=== PATIENT | male | born 1980 | race Two or more races ===

== ENCOUNTER 2025-02-15 09:47 | Outpatient (RCR) | payer BC, SELFPAY ==
--- NOTE | 2025-02-15 10:13 | PT.OIERPT ---
PT OP Initial Eval Patient Information Outpatient Physical Therapy Treatment Date: 02/15/25 Visit Reasons: left knee pain Medical Diagnosis: M25.562 Treatment Dx #1: L knee pain Start of Care: 02/15/25 Date of Onset: 2 yrs ago Smoking Status Smoking Status: Never smoker Initial Assessment Subjective: Pt is 44 yr old male who reports L knee pain x2 yrs. He slipped about a week ago with more L knee pain. He works in the oil [employer] and the knee hurts with getting up from the ground, into and out of the car, squatting, prolonged walking. There is background pain that is constant. PMH: HTN, DM Imaging: Xray report in chart moderate osteophytic spurring ant/inf aspect of the patella at the patellar ligament attachment site Pt goal: to get rid of the pain Objective: L knee ArOM: Extension: -5 deg Flexion: 100 deg SLR: 55 deg Strength: 4-/5 quads, HS Narda's: positive TTP: moderate of patella tendon Valgus stress: positive for gapping and pain of medial knee Assessment: Pt presents with pain and TTP over patella tendon and pain with knee rotation and valgus stress consistent with meniscus irritation and patella tendinopathy. Pt may benefit from skilled therapy but has poor/fair rehab potential if meniscus is torn. Pt may benefit from further diagnostic imaging of L knee such as MRI if ssx don't resolve with conservative Rx. Short Term and Laborer Hoisting Goals 1. Ind with HEP 2. Improved AROM into extension to full and flexion to 110 deg 3. Pt will get up from the ground and into the car without pain 4. Pt will ambulate x community distances and work duties with <=3/10 L knee pain Treatment Plan ?1. Manual therapy ? 2. Therex ? 3. Modalities as indicated, moist heat, ice, estim Frequency and Duration: 1-2x a week for 4 trial rx sessions. If progressing continue up to 12. If not, reassess Certification Dates: 02/15/25 to 05/15/25 Procedure Charges OP PT Eval Mod Complex 30 minutes: Yes
== END 2025-02-16 23:59 | disposition home or self-care (01) ==
LOC: CPTX 09:47
PROVIDERS: PCP Physician Assistant; Referring Provider Physician Assistant; Visit Provider Physician Assistant
DX: M25.562 Pain in left knee (principal); E11.9 Type 2 diabetes mellitus without complications; I10 Essential (primary) hypertension
CPT/HCPCS: 97162

== ENCOUNTER 2025-02-28 07:20 | Day surgery (SDC) | payer BC, SELFPAY ==
--- NOTE | 2025-02-25 11:45 | EKG_ITS ---
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 : 1980 Requested By: Keena Vanegas Order Number: [id number] Reading MD: Keena Vanegas Measurements Intervals [place] Rate: 81 P: 13 FL: 189 QRS: 6 QRSD: 102 T: 21 QT: 370 QTc: 430 Interpretive Statements SINUS RHYTHM No previous ECG available for comparison /store/S0/[id number].pdf
[2025-02-25 12:41] VITALS: BMI 40.6
[2025-02-25 13:38] LABS: Partial Thromboplastin Time 26.6 Seconds (22.0-36.0); Prothrombin Time 10.9 Seconds (9.0-12.2)
[2025-02-25 13:41] LABS: Alanine Aminotransferase 30 U/L (10-49); Albumin, Serum 4.4 gm/dL (3.5-5.0); Albumin/Globulin Ratio 1.8 (1.2-2.2); Alkaline Phosphatase 100 U/L (46-116); Anion Gap 9 (7-16); Aspartate Amino Transferase 21 U/L (0-34); BUN/Creatinine Ratio 14 Ratio (12-20); Bilirubin,Total 0.4 mg/dL (0.3-1.2); Blood Urea Nitrogen 14 mg/dL (9-23); Calcium 8.7 mg/dL (8.3-10.6); Calcium (Corrected) 8.7 mg/dL (8.5-10.1); Carbon Dioxide 26.6 mMol/L (20.0-31.0); Chloride 105 mMol/L (98-107); Estimated Creatinine Clearance 120.5 mL/min (>60); Globulin 2.5 gm/dL (2.3-3.5); Glucose 182 mg/dL (74-106); Osmolality,Calculated 286 (275-295); Potassium 4.1 mMol/L (3.4-5.1); Sodium 141 mMol/L (136-145); Total Protein 6.9 gm/dL (5.7-8.2); eGFR > 60 See Note
[2025-02-28 08:03] VITALS: BP 147/101; PULSE 73; RESP 18; TEMP 36.8; O2SAT 95; BMI 41.0
[2025-02-28] MEDS: RINGERS LACTATED 1000 ML 1,000 ML 20 ML IV (09:12)
[2025-02-28 09:46] VITALS: BP 137/100; PULSE 77; RESP 20; TEMP 36.5; O2SAT 95
[2025-02-28 09:56] VITALS: BP 137/102; PULSE 79; RESP 15; O2SAT 98
[2025-02-28 10:06] VITALS: BP 143/97; PULSE 77; RESP 20; O2SAT 98
[2025-02-28 10:16] VITALS: BP 148/99; PULSE 71; RESP 18; TEMP 36.5; O2SAT 99
--- NOTE | 2025-02-28 10:46 | SUR.PHASEII ---
1020 Pt more awake and alert. Denies pain or N/V. Abd remains large and soft. No mouth or rectal bleeding seen. Pt given urinal-per request. Nidhi PO fluids.
--- NOTE | 2025-02-28 10:56 | SUR.PHASEII ---
1040 Pt assessment unchanged. No complaints. Amb with steady gait. Able to dress self. Pt and family given dc instructions. Aware of 2 new prescriptions, to be picked up at [facility]. Both state understanding. Pt meets dc criteria-to home.
== END 2025-02-28 10:40 | disposition home or self-care (01) ==
PROVIDERS: PCP Physician Assistant; Referring Provider Specialist; Visit Provider Specialist
PROC: 0DBE8ZX Excision of Large Intestine, Via Natural or Artificial Opening Endoscopic, Diagnostic (ICD-10-PCS; CPT 45380; principal; 2025-02-28 09:15)
PROC: (CPT 43239; 2025-02-28 09:15)
DX: K64.2 Third degree hemorrhoids (principal); K29.51 Unspecified chronic gastritis with bleeding; B96.81 Helicobacter pylori [H. pylori] as the cause of diseases classified elsewhere; K20.91 Esophagitis, unspecified with bleeding; I85.00 Esophageal varices without bleeding; I10 Essential (primary) hypertension; E11.9 Type 2 diabetes mellitus without complications; E66.01 Morbid (severe) obesity due to excess calories; Z68.41 Body mass index [BMI] 40.0-44.9, adult; Z79.84 Long term (current) use of oral hypoglycemic drugs; Z79.899 Other long term (current) drug therapy
CPT/HCPCS: 45398; 43239; 36415; 80053; 85610; 85730; 93005; A4649; J7120

== ENCOUNTER 2025-03-15 08:30 | Outpatient (RCR) | payer BC, SELFPAY ==
--- NOTE | 2025-02-25 15:43 | PT.ODAYNRPT ---
PT Outpatient Daily Note OP Daily Note Outpatient Physical Therapy Treatment Date: 02/25/25 Visit Reasons: LEFT KNEE PAIN Subjective: Pt c/o moderate pain. Objective: Please see flow sheet for ther ex list. Assessment: Pt demonstrates poor activity tolerance due to increase pain and c/o clicking/popping. Plan: Continue with POC. Length of Time (minutes) of Treatment: 30 Minutes Procedure Charges Therapeutic Exercise 30 minutes: Yes
--- NOTE | 2025-03-07 14:44 | PT.ODAYNRPT ---
PT Outpatient Daily Note OP Daily Note Outpatient Physical Therapy Treatment Date: 03/07/25 Visit Reasons: LEFT KNEE PAIN Subjective: Increased L knee pain with stepping and twisting Objective: See F/S for therex Ice x7' post Rx Assessment: Good therex tolerance with lunging and partial body weight squatting Plan: Continue per POC Length of Time (minutes) of Treatment: 30 Minutes Procedure Charges Therapeutic Exercise 30 minutes: Yes
--- NOTE | 2025-03-15 10:05 | PT.ODS1RPT ---
PT OP Progress/Discharge Note Date of Service: 03/15/25 Progress Note/DC Note Progress Note/Discharge Note: DC Note Patient Information Visit Reasons: LEFT KNEE PAIN Service Continue Service or Discharge: Discharge Discharge Date: 03/15/25 Status Subjective: Increased L knee pain with stepping and twisting. He has good days and bad days with high knee pain, unchanged since starting therapy. Objective: See F/S for therex L knee strength: Quads: 4-/5 HS: 4-/5 Valgus stress: positive for gapping and pain of medial knee AROM: Flexion: 100 deg Extension: -5 deg Assessment: Pt has attended the eval and 3 Rx sessions with limited progress with therapy goals due to continued L knee pain consistent with meniscus pain and patella osteophytes. PT recommends further diagnostic imaging such as MRI of L knee. Plan: D/C with HEP Procedure Charges Therapeutic Exercise 30 minutes: Yes
== END 2025-03-19 23:59 | disposition home or self-care (01) ==
LOC: CPTX 08:30
PROVIDERS: PCP Physician Assistant; Referring Provider Physician Assistant; Visit Provider Physician Assistant
DX: M25.562 Pain in left knee (principal); I10 Essential (primary) hypertension; E11.9 Type 2 diabetes mellitus without complications
CPT/HCPCS: 97110

== ENCOUNTER 2025-09-20 10:30 | Outpatient (AMB) | payer BC, SELFPAY ==
--- NOTE | 2025-09-20 10:58 | ORTHONT_ITS ---
Vital signs 09/20/25 10:59 Height 1.75 m Height Method Stated Weight 127.176 kg Weight Measurement Method Standing Scale BMI 41.3 BP 144/92 H Blood Pressure Source Automatic Cuff Blood Pressure Location Left Upper Arm Position Sitting Respiration 16 Pulse 85 Pulse Source Monitor Temp 97.5 F Temp Source Temporal Artery Scan Pulse Oximetry (%) 96 Oxygen Delivery Method Room Air Med/Allergies Allergies & Medications Allergies No Known Allergies Allergy (Verified 09/20/25 11:00) Medication Reconciliation ergocalciferol (vitamin D2) 1,250 mcg (50,000 unit) capsule 1,250 mcg PO QWEEK 02/25/25 [History Confirmed 09/20/25] lisinopril 20 mg tablet 20 mg PO QDAY 02/25/25 [History Confirmed 09/20/25] meloxicam 7.5 mg tablet 7.5 mg PO QDAY #45 tabs 09/20/25 [Rx Confirmed 09/20/25] Exam Exam Patient is in no acute distress and is cooperative with the examination today. Breathing is nonlabored. Patient has a normal mood and affect. Bilateral extremities were evaluated and demonstrates sensation intact to light touch. Palpable pedal pulses are present. No significant edema is present. Bilateral hips were examined. The patient has no pain with log roll of the hips. Internal rotation to 30 degrees and external rotation to 30 degrees is painless. Negative FADIR. Right knee was examined today. The right knee is in reasonable alignment. Range of motion from 0-120 degrees. Knee is stable to varus and valgus as well as AP translation with <5mm. Patient has a negative McMurrays. There is no pain with patellofemoral compression and no crepitus noted. The knee is nontender to palpation. Left knee was examined today. The left knee is in varus alignment. Range of motion from 0-115 degrees. Knee is stable to varus and valgus as well as AP translation with <5mm. Patient has a negative McMurrays. There is no pain with patellofemoral compression and no crepitus noted. The knee is tender to palpation medially. There is a positive Narda's Assessment and Plan Problem List (1) Chronic meniscal tear of knee: Status: Acute Plan: Patient is a 44-year-old male with left knee pain and a left knee meniscal tear that is chronic. He is chronic knee pain for over 2 years which has worsened in the last 5 months. He has been off of work because of the pain. He has tried prior anti-inflammatories and physical therapy. We will try conservative treatment including a cortisone injection. We will also get new x-rays and I want him to obtain a copy of his MRI that demonstrates a meniscal tear from [facility] as we do not have access to their system We sent in prescription for meloxicam Plan Plan: Recommend knee cortisone injection as patient would like to proceed with conservative treatment at this time. The risks and benefits of the procedure were reviewed with the patient and patient gave verbal consent to continue with the procedure. Procedure: performed by Dr. Hope Using sterile technique the left knee was thoroughly prepped with alcohol, and approximately 1 cc of Depo-Medrol 80mg/mL and 4 cc of 0.2% ropivacaine was injected without resistance into the medial tibial femoral joint space. The patient tolerated the procedure. 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 ([id number]) Surgical Proc/IM SQ injection Minor Surgical Procedure: Yes (LEFT KNEE INJECTION) Medication Given Medication Given Medication Given: Yes Documented Dose Given: 1 Route: Infiitration Medication Given Medication Given Medication Given: Yes Documented Dose Given: 4 Route: Infiitration Office Meds methylprednisolone acetate 80 mg/mL suspension for injection Performing Provider: Tyson Hope MD Performing Location: [facility] Administered by: Tyson Hope MD on 09/20/25 11:14 Dose Route Admin Location Dispensed Lot Number Expiration Date Pack age [facility] Manager Wind 80 mg intra-articular 1 mL [id number] 05/18/27 [address]-4 7 [id number] [employer] ropivacaine (PF) 2 mg/mL (0.2 %) injection solution Performing Provider: Tyson Hope MD Performing Location: [facility] Administered by: Tyson Hope MD on 09/20/25 11:14 Dose Route Admin Location Dispensed Lot Number Expiration Date Pack age NDC NDC Manager Wind 20 mL Infiltration 20 mL [id number] 11/18/27 04285-186-10 [id number] [facility] Intake Visit Data Collection New Patient or Established: New Patient (never been to [facility]) Reason for Visit:: LEFT KNEE MENISCUS Seen by Clinical Staff ONLY (RN/MA): No PCP or OBGYN visit in last 3 months: Yes Hx Now: No Do You Feel Safe at Home: Yes Authorities Contacted: N/A Questionairres Past Medical History Past Medical History Have you ever been diagnosed with any of the following: Neurological Problems Seizures: No Cardiology Problems Congestive Heart Failure: No Hypertension: Yes Respiratory Problems Chronic Obstructive Pulmonary Disease (COPD): No Stomache/Intestinal Problems Gastroesophageal Reflux Disease: Yes Genital/Urinary Problems Renal Disease: No Endocrine Problems Diabetes Mellitus Type 1: No Diabetes Mellitus Type 2: Yes Other Problems Blood Transfusions: No Blood Transfusion Reaction: No Anesthesia Reactions: No Subjective Visit Visit for: new patient and knee Immunization / Flu Flu Vaccine in the Last 12 Months: No Flu Vaccine Exclusion Criteria: Refused by Patient History of Present Illness Chief complaint: LEFT KNEE MENISCUS Patient is a 44-year-old male with left knee pain ongoing for 2 years and is worse in the last 5 months. The pain is a medial. He reports significant pain when he walks. He has tried 5 sessions of physical therapy which has worsened the pain. He is also tried ibuprofen. 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
[2025-09-20 10:59] VITALS: BP 144/92; PULSE 85; RESP 16; TEMP 36.4; O2SAT 96; BMI 41.3
--- NOTE | 2025-09-20 11:05 | XR_ITS ---
EXAMINATION: Bilateral AP knees single view Left knee PA lateral axial 3 views TECHNIQUE: Bilateral AP knees standing single view Left knee PA flexion weightbearing, lateral weightbearing, axial left knee 3 views total 4 views Date and time: September 20, 2025, 1115 hours, comparison March 04, 2016 INDICATIONS: Patient fell 3 years ago with injury to both knees, left knee pain FINDINGS: Mild osteopenia. Moderate narrowing medial joint space right knee No fracture Moderate narrowing medial joint space left knee No left knee fracture or dislocation Small knee effusion IMPRESSION: Moderate narrowing medial joint spaces No acute fractures
== END 2025-09-20 11:09 | disposition home or self-care (01) ==
LOC: HODSRG 10:30
PROVIDERS: PCP Physician Assistant; Referring Provider Physician Assistant; Supervising Provider Orthopaedic Surgery Adult Reconstructive Orthopaedic Surgery; Visit Provider Orthopaedic Surgery Adult Reconstructive Orthopaedic Surgery
DX: M25.562 Pain in left knee (principal); S83.242D Other tear of medial meniscus, current injury, left knee, subsequent encounter; X58.XXXD Exposure to other specified factors, subsequent encounter
CPT/HCPCS: 20610; 73564; 99204; J1010; J2795; G0463